=== PATIENT | female | born 1950 | race Caucasian/White ===

== ENCOUNTER → 2018-11-26 | Outpatient (CLI) | payer MEDICARE, OTHER ==
[~2018-11-26] MED LIST: Aspirin EC81 MG; LISI20 PO
== END ==
LOC: LAB 19:12 → LAB SHORT 19:12
PROVIDERS: Nurse Practitioner Family
DX: Z01.419 Encounter for gynecological examination (general) (routine) without abnormal findings (principal)
CPT/HCPCS: G0145

== ENCOUNTER 2021-01-16 12:30 | Day surgery (SDC) | payer MEDICARE, OTHER ==
[~2021-01-16] VITALS: Ht 149.9 cm; Wt 47.2 kg
[2021-01-16] MEDS ORDERED: ATOR10 (12:39)
== END 2021-01-16 15:11 | disposition home or self-care (01) ==
LOC: ORSCSDS 12:30
PROVIDERS: Student in an Organized Health Care Education/Training Program
PROC: 0DBN8ZX Excision of Sigmoid Colon, Via Natural or Artificial Opening Endoscopic, Diagnostic (ICD-10-PCS; principal; 2021-01-16 14:00)
PROC: 0DBK8ZX Excision of Ascending Colon, Via Natural or Artificial Opening Endoscopic, Diagnostic (ICD-10-PCS; principal; 2021-01-16 14:00)
PROC: 0DBM8ZX Excision of Descending Colon, Via Natural or Artificial Opening Endoscopic, Diagnostic (ICD-10-PCS; principal; 2021-01-16 14:00)
DX: Z12.11 Encounter for screening for malignant neoplasm of colon (principal); Z86.010 Personal history of colon polyps; D12.2 Benign neoplasm of ascending colon; D12.4 Benign neoplasm of descending colon; D12.5 Benign neoplasm of sigmoid colon; I10 Essential (primary) hypertension; I25.10 Atherosclerotic heart disease of native coronary artery without angina pectoris; I73.9 Peripheral vascular disease, unspecified; Z87.891 Personal history of nicotine dependence; Z79.899 Other long term (current) drug therapy; Z79.82 Long term (current) use of aspirin
CPT/HCPCS: 88305; J2704; J7120

== ENCOUNTER → 2021-11-23 | Outpatient (CLI) | payer MEDICARE, OTHER ==
[~2021-11-23] MED LIST changes: +ATOR10
== END ==
LOC: LAB SHORT 17:10
DX: R30.9 Painful micturition, unspecified (principal)
CPT/HCPCS: 87077; 87086; 87186

== ENCOUNTER 2023-04-02 11:31 | Day surgery (SDC) | payer MEDICARE, OTHER ==
[~2023-04-02] VITALS: Ht 147.3 cm; Wt 51.9 kg
[~2023-04-02 11:31] MED LIST changes: -ATOR10; +ATOR20 PO; -Aspirin EC81 MG; +Aspirin EC81 MG PO; +ESTRADIOL VAG; +Estrace Vagin42.5 GM; +FISH OIL 1,0001 EA10; +OMEGA-3-FISH O1 EAC3 PO; +VIVELLE DOT PO; +Vitamin D1000 UNI1 PO
--- NOTE | 2023-04-02 12:11 | NUR ---
04/02/23 1211 Miranda Magallanes TETRACAINE PLACED IN RIGHT EYE AT 1202. PLEDGET PLACED IN RIGHT AT 1203. PATIENT TOLERATED WELL.
[2023-04-02 13:18] VITALS: BP 131/57
== END 2023-04-02 13:32 | disposition home or self-care (01) ==
LOC: ORSCSDS 11:31
PROVIDERS: Student in an Organized Health Care Education/Training Program
PROC: 08RJ3JZ Replacement of Right Lens with Synthetic Substitute, Percutaneous Approach (ICD-10-PCS; principal; 2023-04-02 13:00)
DX: H25.13 Age-related nuclear cataract, bilateral (principal); I10 Essential (primary) hypertension; E78.5 Hyperlipidemia, unspecified; I73.9 Peripheral vascular disease, unspecified; Z79.82 Long term (current) use of aspirin; Z79.899 Other long term (current) drug therapy; Z87.891 Personal history of nicotine dependence
CPT/HCPCS: J2250; J3010; J7040; V2632

== ENCOUNTER 2023-04-12 09:32 | Day surgery (SDC) | payer MEDICARE, OTHER ==
[~2023-04-12] VITALS: Ht 149.9 cm; Wt 52.2 kg
--- NOTE | 2023-04-12 10:06 | NUR ---
04/12/23 1006 Miranda Magallanes PROPARACAINE PLACED IN LEFT EYE AT 1000. PLEDGET PLACED IN LEFT EYE AT 1001. PT TOLERATED WELL.
[2023-04-12 11:04] VITALS: BP 136/66
== END 2023-04-12 11:19 | disposition home or self-care (01) ==
LOC: ORSCSDS 09:32
PROVIDERS: Student in an Organized Health Care Education/Training Program
PROC: 08RK3JZ Replacement of Left Lens with Synthetic Substitute, Percutaneous Approach (ICD-10-PCS; principal; 2023-04-12 11:00)
DX: H25.12 Age-related nuclear cataract, left eye (principal); Z96.1 Presence of intraocular lens; I10 Essential (primary) hypertension; E78.5 Hyperlipidemia, unspecified; Z79.82 Long term (current) use of aspirin; Z79.899 Other long term (current) drug therapy
CPT/HCPCS: J2250; J3010; J7040; V2632

== ENCOUNTER 2023-08-15 18:16 | Emergency (ER) | payer MEDICARE, OTHER ==
[~2023-08-15] VITALS: Ht 147.3 cm; Wt 50.8 kg
[2023-08-15 18:21] VITALS: BP 178/85
[2023-08-15 19:35] LABS: BASOPHILS ABSOLUTE AUTO 0.03 K/mm3 (0.00-0.23); BASOPHILS PERCENT AUTO 0 % (0-2); EOSINOPHILS ABSOLUTE AUTO 0.04 K/mm3 (0.00-0.68); EOSINOPHILS PERCENT AUTO 1 % (0-6); Hematocrit 41.4 % (33.0-51.0); Hemoglobin 14.1 g/dL (11.5-16.0); IMMATURE GRAN ABSOLUTE AUTO 0.03 K/mm3 (0.00-0.10); IMMATURE GRAN PERCENT AUTO 0 % (0-1); LYMPHOCYTES ABSOLUTE AUTO 2.69 K/mm3 (0.84-5.20); LYMPHOCYTES PERCENT AUTO 37 % (21-46); MONOCYTES ABSOLUTE AUTO 0.57 K/mm3 (0.16-1.47); MONOCYTES PERCENT AUTO 8 % (4-13); Mean Corpuscular HGB 31.7 pg (26.0-34.0); Mean Corpuscular HGB Conc 34.1 g/dL (31.5-36.5); Mean Corpuscular Volume 93 fL (80-100); Mean Platelet Volume 9.5 fL (9.1-12.4); NEUTROPHILS ABSOLUTE AUTO 3.99 K/mm3 (1.96-9.15); NEUTROPHILS PERCENT AUTO 54 % (41-73); Platelet Count 262 K/mm3 (150-400); RDW Coefficient Variation 13.2 % (11.7-14.2); RDW Standard Deviation 45.4 fL (35.1-46.3); Red Blood Cell Count 4.45 M/mm3 (3.80-5.20); White Blood Cell Count 7.35 K/mm3 (4.00-11.30)
[2023-08-15] MEDS ORDERED: Oxymetazoline 0.05% Nasal Relief Spray 15mL BTL ONE (19:45)
[2023-08-15 19:55] LABS: Bun/Creatinine Ratio 32.2 (12.0-20.0); Calcium, Blood 9.4 mg/dL (8.5-10.1); Creatinine, Blood 0.56 mg/dL (0.40-1.00); Potassium, Blood 3.6 mmol/L (3.5-5.5)
== END 2023-08-15 20:44 | disposition home or self-care (01) ==
LOC: ER 18:16
PROVIDERS: Nurse Practitioner
DX: R04.0 Epistaxis (principal); Z79.899 Other long term (current) drug therapy; Z79.82 Long term (current) use of aspirin; Z87.891 Personal history of nicotine dependence
CPT/HCPCS: 80048; 85025; 99283; A9270

== ENCOUNTER 2024-02-17 10:00 | Day surgery (SDC) | payer MEDICARE, OTHER ==
[~2024-02-17] VITALS: Ht 177.8 cm; Wt 51.7 kg
[2024-02-17] MEDS ORDERED: Lactated Ringer's 1,000 ML IV ONE ×2 (11:21→11:26)
[2024-02-17] MEDS ORDERED: propofoL 50 ML IV ONE (11:26)
[2024-02-17 12:28] VITALS: BP 100/67
== END 2024-02-17 12:34 | disposition home or self-care (01) ==
LOC: ORSCSDS 10:00
PROVIDERS: Specialist
PROC: 0DBN8ZX Excision of Sigmoid Colon, Via Natural or Artificial Opening Endoscopic, Diagnostic (ICD-10-PCS; principal; 2024-02-17 11:30)
DX: Z12.11 Encounter for screening for malignant neoplasm of colon (principal); Z86.0101 Personal history of adenomatous and serrated colon polyps; D12.5 Benign neoplasm of sigmoid colon; K57.30 Diverticulosis of large intestine without perforation or abscess without bleeding; K64.8 Other hemorrhoids; I10 Essential (primary) hypertension; I25.10 Atherosclerotic heart disease of native coronary artery without angina pectoris; E78.5 Hyperlipidemia, unspecified; I73.9 Peripheral vascular disease, unspecified; Z79.82 Long term (current) use of aspirin; Z79.899 Other long term (current) drug therapy
CPT/HCPCS: 88305; J2704; J7120

== ENCOUNTER 2024-04-27 08:01 | Day surgery (SDC) | payer MEDICARE, OTHER ==
[2024-04-27] VITALS (12 sets, daily range): BP systolic 94–148; BP diastolic 63–91
[~2024-04-27] VITALS: Ht 147.3 cm; Wt 51.7 kg
[~2024-04-27 08:01] MED LIST changes: +Amlodipine Bes2.5 MG PO; +Aspir 8181 MG PO; +VITAMIN D31250 MC2 PO
[2024-04-27] MEDS ORDERED: NS 1,000 ML IV ONE ×2 (08:41→09:23)
[2024-04-27] MEDS ORDERED: Nitroglycerin 2 MG/20 ML BTL ONE (08:41)
[2024-04-27] MEDS ORDERED: NS 250 ML IV ONE (08:41)
[2024-04-27] MEDS ORDERED: Heparin Sodium 1000 Units/ML 10ML MDV ONE ×2 (08:41→10:58)
[2024-04-27] MEDS ORDERED: NS 100 ML IV ONE (08:42)
[2024-04-27] MEDS ORDERED: Midazolam HCl 1MG / ML 2ML Vial ONE ×2 (09:22→09:42)
[2024-04-27] MEDS ORDERED: FentaNYL Citrate 50 MCG/ML 2 ML Injection ONE (09:22)
[2024-04-27] MEDS ORDERED: Clopidogrel Bisulfate 300 MG Cap ONE (11:11)
--- NOTE | 2024-04-27 11:29 | NUR ---
pt back to recovery from lab. groin site soft and non-tender per pt. no bleeding noted.
--- NOTE | 2024-04-27 11:34 | NUR ---
plavix script called to pharmacy
[2024-04-27] MEDS ORDERED: CLOP75 PO (11:35)
--- NOTE | 2024-04-27 12:04 | NUR ---
BILAT PT PULSES PRESENT ALONG WITH L DP PRESENT VIA DOPPLER.
--- NOTE | 2024-04-27 12:11 | NUR ---
DR WARD AT BEDSIDE TO DSICUSS PROCEDURE AND FUTURE PLAN OF CARE. AT [facility].
--- NOTE | 2024-04-27 13:24 | NUR ---
pt sat to 30 degrees. groin site soft and non-tender per pt. no bleeding noted.
--- NOTE | 2024-04-27 13:45 | NUR ---
Pt up to dangle and then ambulate to the bathroom. site checked prior to ambulation and after. small dime sized ooze on dressing. Site is soft, tender to palpation. Pt. continues to dangle at bedside. discharge instructions reviewed with patient and pt . VSS at this time.
--- NOTE | 2024-04-27 14:15 | NUR ---
Site reassessed prior to getting dressed and after pt was dressed. Site remains unchanged from previous assessment with small ooze noted to dressing. site assessed with pt and pt prior to departure. pt. had no further questions after discharge instructions were reviewed. iv removed, catheter intact.
== END 2024-04-27 14:59 | disposition home or self-care (01) ==
LOC: MHTC 08:01
DX: I73.9 Peripheral vascular disease, unspecified (principal); I10 Essential (primary) hypertension; E78.5 Hyperlipidemia, unspecified; Z87.891 Personal history of nicotine dependence; Z79.82 Long term (current) use of aspirin; Z79.899 Other long term (current) drug therapy
CPT/HCPCS: 76937; 85347; 99152; 99153; A9270; C1725; C1760; C1769; C1887; C2623; J1644; J2250; J3010; J7030; J7050; Q9967

== ENCOUNTER 2024-05-18 06:32 | Day surgery (SDC) | payer MEDICARE, OTHER ==
[~2024-05-18] VITALS: Ht 147.3 cm; Wt 51.7 kg
[2024-05-18] VITALS (11 sets, daily range): BP systolic 89–168; BP diastolic 51–82
[~2024-05-18 06:32] MED LIST changes: +CLOP75 PO; +ESTRADIOL PO; -ESTRADIOL VAG
[2024-05-18] MEDS ORDERED: NS 500 ML IV ONE (07:06)
[2024-05-18] MEDS ORDERED: NS 1,000 ML IV ONE ×2 (07:06→08:00)
[2024-05-18] MEDS ORDERED: Heparin Sodium 1000 Units/ML 10ML MDV ONE (07:06)
[2024-05-18] MEDS ORDERED: Midazolam HCl 1MG / ML 2ML Vial ONE ×2 (08:00→08:53)
[2024-05-18] MEDS ORDERED: FentaNYL Citrate 50 MCG/ML 2 ML Injection ONE ×2 (08:00→08:53)
--- NOTE | 2024-05-18 10:16 | NUR ---
PATIENT TO RECOVERY ROOM S/P PERIPHERAL ANGIOGRAM WITH INTERVENTION TO RIGHT SFA. ANGIOSEAL TO LEFT GROIN, SOFT, NONTENDER, WITHOUT SWELLING OR BLEEDING. PT FLAT/SUPINE, RESTING WITHOUT COMPLAINTS. PULSES TO BLE UNCHANGED FROM PRE PROCEDURE EVALUATION. DOPPLER TO BILAT P.T., ABSENT TO BILAT D.P. PT COLD WITH COOL EXTREMITIES. BEAR HUGGER PLACED.
--- NOTE | 2024-05-18 11:16 | NUR ---
LEFT GROIN REMAINS STABLE. DOPPLERS NOW POSITIVE TO BILAT DP/PT. CIRC CHECK WNL. PT MILDLY HYPOTENSIVE WITH MAPS >65, PT HAS BEEN SLEEPING AND IS RELAXED, DENIES COMPLAINTS. HOB PLACED AT 30 DEGREES AT 1115 W/O ISSUE.
--- NOTE | 2024-05-18 13:23 | NUR ---
PT OOB TO CHAIR, TOLERATED FOOD/FLUIDS. BP STABLE WHILE UP. UP TO BATHROOM, TO VOID, BETH WELL. LEFT GROIN CHECKED AFTER PATIENT UP AND AMBULATORY; SITE SOFT AND NON-TENDER, WITHOUT HEMATOMA OR BLEEDING. PT DENIES COMPLAINTS. VERBAL AND WRITTEN DISCHARGE INSTRUCTIONS GIVEN TO PATIENT AND PT'S WITH CLEAR UNDERSTANDING. FOLLOW UP APPOINTMENT MADE. PATIENT DC'D HOME IN STABLE CONDITION AT 1345. PT ESCORTED OUT VIA WHEELCHAIR.
== END 2024-05-18 15:34 | disposition home or self-care (01) ==
LOC: MHTC 06:32
DX: I70.201 Unspecified atherosclerosis of native arteries of extremities, right leg (principal); I10 Essential (primary) hypertension; E78.5 Hyperlipidemia, unspecified; Z87.891 Personal history of nicotine dependence; Z79.82 Long term (current) use of aspirin; Z79.899 Other long term (current) drug therapy
CPT/HCPCS: 37225; 37252; 75625; 75716; 75774; 76937; 85347; 99152; 99153; C1714; C1725; C1753; C1760; C1769; C1884; C1887; C2623; J1644; J2250; J3010; J7030; J7050; Q9967